=== PATIENT | male | born 1965 | race Caucasian/White ===

== ENCOUNTER → 2024-09-09 | Day surgery (SDC) | payer OTHER ==
[~2024-09-09] MED LIST: ACETAMINOPHEN/CODEINE 300MG - 30MG TAB ONE; BREZTRI AEROS10.7 GM; COREG6.25 MG PO; CRESTOR40 MG PO; DEXAMETHASONE SOD PHOS INJ 4 MG/ML SDV ONE; FENTANYL CITRATE/PF 100MCG/2 ML INJ ONE; HYDRALAZINE HCL 20 MG/ML VIAL ONE; LEXAPRO20 MG PO; LIDOCAINE HCL 2% LOCAL INJ 5 ML SDV VIAL INJ ONE; LISINOPRIL-HCT1 EAC1 PO; METAMUCIL FIBE3.4 GM PO; MIDAZOLAM HCL 2 MG/2 ML VIAL ONE; MONTELUKAST SOD10 MG PO; OMEPRAZOLE40 MG PO; ONDANSETRON HCL INJ 2MG/ML 2ML 2 MG/ML VIAL ONE; PROPOFOL IV EMULSION 10 MG/ML 20 ML VIAL ONE; ROCURONIUM BROMIDE 1 ML IV ONE; SEVOFLURANE INHAL SOLN 250 ML PEN BTL ONE; SUCCINYLCHOLINE CHLORIDE 20 MG/ML 10ML VIAL ONE; SUGAMMADEX SODIUM 200 MG/2 ML VIAL IV ONE
[2024-09-09] MEDS: LACTATED RINGER'S 1,000 ML ONE (09:03)
[2024-09-09] MEDS: FENTANYL CITRATE/PF 100MCG/2 ML INJ ONE (14:15)
[2024-09-09 14:30] VITALS: TEMP 97.8
[2024-09-09 14:55] VITALS: BP 115/71; PULSE 81; RESP 18; O2SAT 97
[2024-09-09] MEDS: ACETAMINOPHEN/CODEINE 300MG - 30MG TAB PO ONE (14:55)
== END | disposition home or self-care (01) ==
LOC: OR 08:23
PROVIDERS: ATTEND Otolaryngology Otolaryngology/Facial Plastic Surgery
DX: D14.0 Benign neoplasm of middle ear, nasal cavity and accessory sinuses (principal); J32.0 Chronic maxillary sinusitis; F17.210 Nicotine dependence, cigarettes, uncomplicated; I10 Essential (primary) hypertension; E78.5 Hyperlipidemia, unspecified; F17.290 Nicotine dependence, other tobacco product, uncomplicated; Z79.899 Other long term (current) drug therapy
CPT/HCPCS: 30117; 88112; 88305; 93005; J0330; J0360; J1100; J2003; J2405; J2704; J3010; J7121; 88304; J2250